=== PATIENT | female | born 1935 | race Two or more races ===

== ENCOUNTER 2019-02-01 22:51 | Emergency (ER) | payer OTHER, MEDICAID ==
[~2019-02-01] VITALS: Ht 165.1 cm; Wt 54.0 kg
[~2019-02-01 22:51] MED LIST: ACET500T95 PO; IBUP-2028 PO; PANT40TA4 PO; PIOG15TA66 PO; SIMV20TA6 PO; TRAM50TA3 PO
[2019-02-02] MEDS: ONDANSETRON HCL 4MG/2ML INJ IV STA (00:23)
[2019-02-02] MEDS: SODIUM CHLORIDE 0.9% 1,000 ML IV ONE (00:23)
[2019-02-02] MEDS: KETOROLAC 30MG/ML VIAL IV STA (00:23)
[2019-02-02 00:57] LABS: HEMATOCRIT. 21.8 % (36.0-48.0); HEMOGLOBIN. 7.8 g/dL (12.0-16.0); MEAN CORPUSCULAR HEMOGLOBIN 31.2 pg (28.0-32.0); MEAN CORPUSCULAR VOLUME 87.4 fL (81.0-99.0); MEAN PLATELET VOLUME 7.1 fl (7.4-10.4); PLATELET 455 x1000/uL (130-400); RED CELL DISTRIBUTION WIDTH 16.7 % (11.6-14.6)
[2019-02-02 01:00] LABS: CHLORIDE 97 mEq/L (98-107)
[2019-02-02 01:05] LABS: PROTHROMBIN TIME 10.7 sec (9.6-11.0)
[2019-02-02 01:33] LABS: PLATELET ESTIMATE SLIGHTLY INCREASED
[2019-02-02 01:40] LABS: CLARITY URINE TURBID (CLEAR); COLOR URINE ORANGE (YELLOW); KETONES URINE NEGATIVE (NEGATIVE); LEUKOCYTE ESTERASE URINE 3+ (NEGATIVE); NITRITE URINE NEGATIVE (NEGATIVE); OCCULT BLOOD URINE 3+ (NEGATIVE); PROTEIN URINE 2+ (NEGATIVE); SPECIFIC GRAVITY URINE 1.016 (1.005-1.030); UROBILINOGEN URINE 0.2 E.U./dL (0.2-1.0)
[2019-02-02 02:00] VITALS: BP 106/48
== END 2019-02-02 02:00 | disposition home or self-care (01) ==
LOC: ER 22:51
DX: K59.00 Constipation, unspecified (principal); E11.9 Type 2 diabetes mellitus without complications; Z79.899 Other long term (current) drug therapy
CPT/HCPCS: 36415; 80053; 81003; 83690; 84484; 85025; 85610; 86850; 86900; 86901; 86920; 87086; 96374; 96375; 99283; J1885; J2405; J7030